=== PATIENT | male | born 1975 | race Caucasian/White ===

== ENCOUNTER 2018-09-06 12:51 | Emergency (ER) | payer OTHER, MEDICAID ==
[2018-09-06 13:07] VITALS: BP 119/71; PULSE 65; RESP 16; TEMP 97.7; O2SAT 97
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
[2018-09-06] MEDS ORDERED: Lidocaine 5% Patch TD STA (13:25)
[2018-09-06] MEDS ORDERED: Lidocaine 5% Patch TD ONE (13:29)
== END 2018-09-06 13:30 | disposition home or self-care (01) ==
LOC: C.ER 12:51
DX: S16.1XXA Strain of muscle, fascia and tendon at neck level, initial encounter (principal); V49.40XA Driver injured in collision with unspecified motor vehicles in traffic accident, initial encounter